=== PATIENT | female | born 1995 | race Caucasian/White ===

== ENCOUNTER 2020-09-14 07:59 | Inpatient (IN) | payer OTHER ==
[~2020-09-14] VITALS: Ht 167.6 cm; Wt 184.2 kg
[2020-09-14 09:31] LABS: HEMOGLOBIN 10.3 gm/dl (12.3-15.3); RED BLOOD COUNT 3.82 M/UL (4.00-5.10); WHITE BLOOD COUNT 8.9 K/UL (4.5-11.0)
[2020-09-14] MEDS ORDERED: PRENATAL VITAM1 EAC5 PO (18:19)
[2020-09-15] MEDS ORDERED: DOCUSATE SODIU100 MG PO (05:47)
[2020-09-15] MEDS ORDERED: IBUPROFEN800 MG PO (05:47)
[2020-09-15] MEDS ORDERED: HYDROCODON-ACE1 EAC4 PO (05:47)
== END 2020-09-15 16:26 | disposition short-term general hospital (02) | DRG 805 ==
LOC: GENOP 07:59 → OB 13:35
PROVIDERS: ADMIT Obstetrics & Gynecology
PROC: 10907ZC Drainage of Amniotic Fluid, Therapeutic from Products of Conception, Via Natural or Artificial Opening (ICD-10-PCS; principal; 2020-09-14)
PROC: 4A1HX4Z Monitoring of Products of Conception, Cardiac Electrical Activity, External Approach (ICD-10-PCS; 2020-09-14)
PROC: 10E0XZZ Delivery of Products of Conception, External Approach (ICD-10-PCS; 2020-09-15)
PROC: 0KQM0ZZ Repair Perineum Muscle, Open Approach (ICD-10-PCS; 2020-09-15)
DX: O99.214 Obesity complicating childbirth (principal); O41.1230 Chorioamnionitis, third trimester, not applicable or unspecified; Z37.0 Single live birth; E66.01 Morbid (severe) obesity due to excess calories; Z3A.38 38 weeks gestation of pregnancy; O13.4 Gestational [pregnancy-induced] hypertension without significant proteinuria, complicating childbirth; Z20.822 Contact with and (suspected) exposure to COVID-19; O70.1 Second degree perineal laceration during delivery
CPT/HCPCS: 36415; 51702; 81001; 82800; 85025; J0290; J0595; J1580; J1885; J2001; J2590; J2795; J7120; U0002

== ENCOUNTER 2022-02-19 01:25 | Outpatient (CLI) | payer OTHER ==
[~2022-02-19 01:25] MED LIST: DOCUSATE SODIU100 MG PO; HYDROCODON-ACE1 EAC4 PO; IBUPROFEN800 MG PO; PRENATAL VITAM1 EAC5 PO
== END 2022-02-19 06:04 | disposition home or self-care (01) ==
LOC: GENOP 01:25
DX: O47.03 False labor before 37 completed weeks of gestation, third trimester (principal); Z3A.33 33 weeks gestation of pregnancy
CPT/HCPCS: 82731; 96360; 96361; 96372; J3105

== ENCOUNTER 2022-03-23 03:11 | Inpatient (IN) | payer OTHER ==
[2022-03-23 07:49] LABS: HEMOGLOBIN 9.9 gm/dl (12.3-15.3); RED BLOOD COUNT 3.84 M/UL (4.00-5.10); WHITE BLOOD COUNT 9.7 K/UL (4.5-11.0)
[2022-03-24 03:11] LABS: HEMOGLOBIN 9.6 gm/dl (12.3-15.3)
[2022-03-25] MEDS ORDERED: COLACE 100MG C100 MG PO (12:59)
[2022-03-25] MEDS ORDERED: IBUPROFEN800 MG PO (12:59)
== END 2022-03-25 16:05 | disposition home or self-care (01) | DRG 807 ==
LOC: GENOP 03:11 → OB 07:36
PROVIDERS: Obstetrics & Gynecology; ADMIT Obstetrics & Gynecology
PROC: 10E0XZZ Delivery of Products of Conception, External Approach (ICD-10-PCS; principal; 2022-03-23)
PROC: 0KQM0ZZ Repair Perineum Muscle, Open Approach (ICD-10-PCS; 2022-03-23)
PROC: 4A1HXCZ Monitoring of Products of Conception, Cardiac Rate, External Approach (ICD-10-PCS; 2022-03-23)
PROC: 3E033VJ Introduction of Other Hormone into Peripheral Vein, Percutaneous Approach (ICD-10-PCS; 2022-03-23)
DX: O99.214 Obesity complicating childbirth (principal); Z37.0 Single live birth; Z3A.38 38 weeks gestation of pregnancy; E66.01 Morbid (severe) obesity due to excess calories; O66.0 Obstructed labor due to shoulder dystocia; Z28.310 Unvaccinated for COVID-19; Z82.49 Family history of ischemic heart disease and other diseases of the circulatory system; Z80.8 Family history of malignant neoplasm of other organs or systems; Z80.1 Family history of malignant neoplasm of trachea, bronchus and lung; O66.3 Obstructed labor due to other abnormalities of fetus; O70.1 Second degree perineal laceration during delivery; O69.81X0 Labor and delivery complicated by cord around neck, without compression, not applicable or unspecified
CPT/HCPCS: 36415; 82800; 85014; 85018; 85025; 86900; 86901; J2210; J2590